=== PATIENT | male | born 1990 | race Caucasian/White ===

== ENCOUNTER 2024-06-28 19:24 | Emergency (ER) | payer BC, OTHER | END 2024-06-28 21:55 | disposition home or self-care (01) | LOC: KA.ED 19:24 | DX: R05.1 Acute cough (principal); R06.00 Dyspnea, unspecified; F17.290 Nicotine dependence, other tobacco product, uncomplicated; Z79.899 Other long term (current) drug therapy | CPT/HCPCS: 71045; 99283; 99284 ==